=== PATIENT | male | born 1970 | race Caucasian/White ===

== ENCOUNTER 2023-07-15 09:53 | Outpatient (CLI) | payer BC, SELFPAY | END 2023-07-15 09:54 | disposition home or self-care (01) | PROVIDERS: PCP Family Medicine; Visit Provider Family Medicine | DX: R53.83 Other fatigue (principal); R35.0 Frequency of micturition; F41.9 Anxiety disorder, unspecified; Z13.220 Encounter for screening for lipoid disorders | CPT/HCPCS: 80053; 80061; 84439; 84443; 87086 ==

== ENCOUNTER 2023-08-06 10:11 | Outpatient (CLI) | payer BC, SELFPAY ==
--- NOTE | 2023-08-06 11:36 | W.ANESCHARGE ---
Anesthesia Charges Start Date/Time Anesthesia Start Date: 08/06/23 Anesthesia Start Time: 11:08 Stop Date/Time Anesthesia Stop Date: 08/06/23 Anesthesia Stop Time: 11:34
--- NOTE | 2023-08-06 11:38 | W.ANESCHARGE ---
Anesthesia Charges Start Date/Time Anesthesia Start Date: 08/06/23 Anesthesia Start Time: 11:08 Stop Date/Time Anesthesia Stop Date: 08/06/23 Anesthesia Stop Time: 11:34
== END 2023-08-06 10:12 | disposition home or self-care (01) ==
LOC: OP CLINIC 10:11
PROVIDERS: PCP Family Medicine; Visit Provider Internal Medicine
DX: Z12.11 Encounter for screening for malignant neoplasm of colon (principal); K63.5 Polyp of colon; K62.1 Rectal polyp
CPT/HCPCS: 00811; 45380; 45385; 88305; J2704

== ENCOUNTER 2023-08-24 03:00 | Emergency (ER) | payer BC, SELFPAY ==
[2023-08-24] VITALS (10 sets, daily range): BP systolic 132–144; BP diastolic 87–97; PULSE 60–65; RESP 16; TEMP 36.6; O2SAT 94–98; BMI 30.8
--- NOTE | 2023-08-24 03:17 | ED_ITS ---
HPI - General Adult General Chief complaint: Chest Pain Stated complaint: chest pain Time Seen by Provider: 08/24/23 03:02 History of Present Illness HPI narrative: patient awoke from sleep around 30 minutes ago with 10/10 chest pain and SOB, no previous cardiac hx, called 911, EMS gave 3 sublingual nitro, 4mg Zofran and aspirin in route to hospital. patient reports recent stress at work but otherwise denies recent changes in lifestyle, denies cardiac hx. currently SOB has resolved and pain is rated 6 /10. 53-year-old man presenting to the emergency department with concern of chest pain. He arrives by EMS. Had been up maybe more than an hour ago now and noticed some tingling in his left arm as was going to the bathroom. Subsequently began feeling like he was aching all over. Has a difficult time describing what happened. There was some shortness of breath he had some cramping in his feet as well. Was diaphoretic. He has doesn't remember much he says. EMS gave nitro and Zofran and aspirin. He does feel like he would benefit yet from some pain medicine for pain all over. Has not had a fever. Just generally does not feel well. He later says how he was sure he was having a heart attack; was just lying in so much distress on the floor. Later does acknowledge that sees a psychiatrist in weekly session and missed this last session I believe due to therapist being unavailable/ill? Does have a history of PTSD from participation in a few theaters of war. Related Data Home Medications Medication Instructions Recorded Confirmed allopurinol 100 mg tablet 200 mg PO DAILY 07/15/23 07/21/23 aspirin-caffeine 500 mg-32.5 mg 2 tab PO .QD PRN 07/15/23 07/21/23 tablet (Fouzia Back and Body) colchicine 0.6 mg capsule 0.6 mg PO QDAY 07/15/23 07/21/23 Previous Rx's Medication Instructions Recorded peg 3350-electrolytes 236 240 ml PO Q10M #4,000 mL 07/15/23 gram-22.74 gram-6.74 gram-5.86 gram solution (Golytely) escitalopram oxalate 10 mg tablet 10 mg PO QDAY #30 tabs 07/21/23 Allergies Allergy/AdvReac Type Severity Reaction Status Date / Time No Known Drug Allergies Allergy Verified 07/21/23 08:27 Review of Systems Status of ROS: Reports: 6 or more systems reviewed and unremarkable except as noted in History and below PFSH PFS Surgical History Status post rotator cuff repair ?Z98.890 - Other specified postprocedural states (ICD-10) Social History What is your current living situation?: I presently have a place to live Problems where you live: declined to answer In the past 12 months, utilities in danger of being shut off: declined to answer In past 12 months, lack of transportation kept you from medical appts, meetings, work, or getting things needed for daily living: no In the past 12 mos, have been you worried that your food would run out before you had money to buy more?: declined to answer In the past 12 mos, the food you bought just didn't last and you didn't have money to buy more?: declined to answer Smoking Status: Never smoker Non-prescribed substance use: denies use How often does anyone, including family, friends and others, physically hurt you : decline to answer How often does anyone, including family, friends and others, insult or talk down to you: decline to answer How often does anyone, including family, friends and others, threaten you with harm: decline to answer How often does anyone, including family, friends and others, scream or curse at you: decline to answer Little interest or pleasure in doing things: more than half the days Feeling down, depressed, or hopeless: several days Exam Narrative: Exam Narrative: Tremulous. Little distracted. Often speaking rather quietly in difficult to understand. As well-healed surgical scar at the right shoulder. Head looks to be atraumatic. Cranial nerves 2-12 intact. Evidently does not tend to smile a whole lot. Lungs are clear. Does have some large skin tags here. Also at the neck. Heart in regular rate and rhythm without murmur rub or gallop. Moving all extremities without difficulty other than little shaky as noted above. Well-perfused. No lower extremity edema. I am not able to reproduce pain to palpation over the anterior chest but he indicates mid chest very discomfort. Abdomen is soft and nontender. Strong and equal upper extremity pulses. Const: Vital Signs, click to edit/add: Vital Signs - 24 hr 08/24/23 03:04 08/24/23 03:28 08/24/23 03:37 Temperature 98 F Pulse Rate 63 Pulse Rate [Pulse Oximeter] 62 Respiratory Rate 16 16 Blood Pressure 140/93 H Blood Pressure [Ri ght Upper Arm] 142/89 H Pulse Oximetry 97 98 97 Oxygen Delivery Me thod Room Air 08/24/23 04:16 08/24/23 04:36 08/24/23 04:56 Temperature Pulse Rate 65 60 63 Pulse Rate [Pulse Oximeter] Respiratory Rate 16 16 16 Blood Pressure 140/94 H 132/87 140/91 H Blood Pressure [Ri ght Upper Arm] Pulse Oximetry 96 98 96 Oxygen Delivery Me thod 08/24/23 05:37 08/24/23 05:59 08/24/23 06:16 Temperature Pulse Rate 63 61 65 Pulse Rate [Pulse Oximeter] Respiratory Rate 16 16 16 Blood Pressure 138/92 H 137/97 H 144/96 H Blood Pressure [Ri ght Upper Arm] Pulse Oximetry 96 98 96 Oxygen Delivery Me thod 08/24/23 06:36 Temperature Pulse Rate 65 Pulse Rate [Pulse Oximeter] Respiratory Rate 16 Blood Pressure 144/96 H Blood Pressure [Ri ght Upper Arm] Pulse Oximetry 94 Oxygen Delivery Me thod Documenting provider has reviewed patient's vital signs: yes Course Vital Signs Vital signs: Initial Vital Signs Temperature 98 F 08/24/23 03:04 Temperature Source Temporal Artery Scan 08/24/23 03:04 Pulse Rate 62 08/24/23 03:04 Respiratory Rate 16 08/24/23 03:04 Blood Pressure 142/89 H 08/24/23 03:04 Blood Pressure Mean 106 H 08/24/23 03:04 Blood Pressure Position Supine 08/24/23 03:04 Pulse Oximetry 97 08/24/23 03:04 Oxygen Delivery Method Room Air 08/24/23 03:04 Vital Signs Temperature 98 F 08/24/23 03:04 Pulse Rate 62 08/24/23 03:04 Respiratory Rate 16 08/24/23 03:04 Blood Pressure 142/89 H 08/24/23 03:04 Pulse Oximetry 97 08/24/23 03:04 Oxygen Delivery Method Room Air 08/24/23 03:04 Temperature 98 F 08/24/23 03:04 Pulse Rate 65 08/24/23 06:36 Respiratory Rate 16 08/24/23 06:36 Blood Pressure 144/96 H 08/24/23 06:36 Pulse Oximetry 94 08/24/23 06:36 Oxygen Delivery Method Room Air 08/24/23 03:04 Medications Administered Medications: Discontinued Medications Generic Name Dose Route Start Last Admin Trade Name Sandy PRN Reason Stop Dose Admin Sodium Chloride 1,000 mls @ 1,000 mls/hr 08/24/23 03:28 08/24/23 05:11 0.9 % Sodium Chloride 1000 Ml IV 08/24/23 04:27 Infused .Q1H ONE Infusion Ketorolac Tromethamine 15 mg 08/24/23 03:28 08/24/23 03:40 Ketorolac 15 Mg/Ml Inj IVP 08/24/23 03:29 15 mg ONCE ONE Administration Lorazepam 0.5 mg 08/24/23 04:28 08/24/23 04:37 Lorazepam 2 Mg/Ml Inj IVP 08/24/23 04:29 0.5 mg ONCE ONE Administration Lorazepam 1 mg 08/24/23 06:11 08/24/23 06:18 Lorazepam 1 Mg Tablet PO 08/24/23 06:12 1 mg ONCE ONE Administration Medical Decision Making MDM Narrative Medical decision making narrative: I suspect this was a panic attack. Discussed however that difficult to distinguish the sometimes from her noncardiac chest pain and will be evaluating for this. Also for evidence of vascular dissection. Possible tachyarrhythmia. VBGs would suggest that he had been blowing off CO2. He would appreciate some medicine for the nonspecific pain he has all over. Did order for ketorolac. Also receiving L of normal saline. On reassessment is not much changed. Stable vitals. Would like some more treatment. Ultimately does accept my offered lorazepam as prior. Labs are reassuring in addition are EKGs as noted below and repeat troponins. This initial IV Ativan did apparently a offer some temporary relief but symptoms returned. Ordered for 1 mg of oral lorazepam. Was improved and I believe able to sleep prior to departure. Later reveals that had been given prescription of citalopram or escitalopram but has yet started medication. Just did not want to take medication; worried how it might affect his work I believe. See patient discharge plan for further discussion Lab Data Lab results reviewed: Yes I reviewed the patient's lab results Labs: Lab Results 08/24/23 08/24/23 08/24/23 Range/Units 03:20 03:29 03:38 WBC 7.71 (4.50-11.00) K/uL RBC 4.86 (4.30-5.90) m/uL Hgb 14.3 (13.5-17.5) gm/dL Hct 42.4 (37.0-53.0) % MCV 87 (80-100) fL MCH 29 (26-34) pg MCHC 34 (32-36) gm/dL RDW Coeff of Steven 12.6 (11.5-15.5) % Plt Count 241 (140-440) K/uL Neut % (Auto) 53.6 (42.0-72.0) % Lymph % (Auto) 34.8 (20-44) % [place] % (Auto) 6.9 (0.0-11.0) % Eos % (Auto) 3.9 (0.0-7.0) % Baso % (Auto) 0.5 (0.0-3.0) % Neut # (Auto) 4.14 (1.7-7.0) K/uL Lymph # (Auto) 2.68 (0.90-2.90) K/uL [place] # (Auto) 0.50 (0.00-0.90) K/UL Eos # (Auto) 0.30 (0.00-0.50) K/uL Baso # (Auto) 0.04 (0.00-0.30) K/uL Abs Immat Gran (auto) 0.02 (0.00-0.30) K/uL Imm/Tot Granulo (auto) 0.3 % D-Dimer Quant (PE/DVT) 0.28 (0.00-0.50) ug/ml VBG pH 7.460 H (7.32-7.43) VBG pCO2 31 L (40-50) mmHG VBG pO2 106.0 H (25-47) mmHG VBG HCO3 22 (21-28) mmol/L Sodium 137 (135-149) mmol/L Potassium 3.7 (3.6-5.1) mmol/L Chloride 109 (96-114) mmol/L Carbon Dioxide 20 (20-32) mmol/L Anion Gap 8 (7-15) mEq/L BUN 15 (7-30) mg/dL Creatinine 0.9 (0.5-1.5) mg/dL Estimated Creat Clear 112.90 Estimated GFR 103 ml/min Glucose 103 (60-115) mg/dL Lactate 1.3 (0.5-1.9) mmol/L Calcium 9.2 (8.4-10.6) mg/dL Troponin I < 0.01 L (0.01-0.04) ng/mL NT-Pro-B Natriuret Pep 36 pg/mL Urine Opiates Screen (Negative) Ur Oxycodone Screen (Negative) Urine Methadone Screen (Negative) Ur Barbiturates Screen (Negative) U Tricyclic Antidepress (Negative) Ur Phencyclidine Scrn (Negative) Ur Amphetamines Screen (Negative) U Methamphetamines Scrn (Negative) U Benzodiazepines Scrn (Negative) Urine Cocaine Screen (Negative) U Marijuana (THC) Screen (Negative) Ur Drug Screen Comment Ethyl Alcohol < 0.01 L (0.01-0.03) % SARS-CoV-2 (PCR) Negative SARS-CoV-2 (Negative) Influenza Type A (PCR) Negative PCR FLU A (Negative) Influenza Type B (PCR) Negative PCR FLU B (Negative) POC Troponin I 0.00 L (0.01-0.04) ng/ml 08/24/23 08/24/23 Range/Units 04:35 05:05 WBC (4.50-11.00) K/uL RBC (4.30-5.90) m/uL Hgb (13.5-17.5) gm/dL Hct (37.0-53.0) % MCV (80-100) fL MCH (26-34) pg MCHC (32-36) gm/dL RDW Coeff of Steven (11.5-15.5) % Plt Count (140-440) K/uL Neut % (Auto) (42.0-72.0) % Lymph % (Auto) (20-44) % [place] % (Auto) (0.0-11.0) % Eos % (Auto) (0.0-7.0) % Baso % (Auto) (0.0-3.0) % Neut # (Auto) (1.7-7.0) K/uL Lymph # (Auto) (0.90-2.90) K/uL [place] # (Auto) (0.00-0.90) K/UL Eos # (Auto) (0.00-0.50) K/uL Baso # (Auto) (0.00-0.30) K/uL Abs Immat Gran (auto) (0.00-0.30) K/uL Imm/Tot Granulo (auto) % D-Dimer Quant (PE/DVT) (0.00-0.50) ug/ml VBG pH (7.32-7.43) VBG pCO2 (40-50) mmHG VBG pO2 (25-47) mmHG VBG HCO3 (21-28) mmol/L Sodium (135-149) mmol/L Potassium (3.6-5.1) mmol/L Chloride (96-114) mmol/L Carbon Dioxide (20-32) mmol/L Anion Gap (7-15) mEq/L BUN (7-30) mg/dL Creatinine (0.5-1.5) mg/dL Estimated Creat Clear Estimated GFR ml/min Glucose (60-115) mg/dL Lactate (0.5-1.9) mmol/L Calcium (8.4-10.6) mg/dL Troponin I (0.01-0.04) ng/mL NT-Pro-B Natriuret Pep pg/mL Urine Opiates Screen Negative (Negative) Ur Oxycodone Screen Negative (Negative) Urine Methadone Screen Negative (Negative) Ur Barbiturates Screen Negative (Negative) U Tricyclic Antidepress Negative (Negative) Ur Phencyclidine Scrn Negative (Negative) Ur Amphetamines Screen Negative (Negative) U Methamphetamines Scrn Negative (Negative) U Benzodiazepines Scrn Negative (Negative) Urine Cocaine Screen Negative (Negative) U Marijuana (THC) Screen Negative (Negative) Ur Drug Screen Comment See Note Ethyl Alcohol (0.01-0.03) % SARS-CoV-2 (PCR) (Negative) Influenza Type A (PCR) (Negative) Influenza Type B (PCR) (Negative) POC Troponin I 0.01 (0.01-0.04) ng/ml ECG Data Attestation: I personally reviewed and interpreted this ECG as follows: (EKG 1. With a sinus bradycardia at a rate of 58 without acute ischemic changes. EKG 2. In normal sinus rhythm at a rate of 64 without acute ischemic changes) Discharge Plan Discharge Clinical Impression: Malaise, Atypical chest pain, Panic attack Patient Disposition: Home w/ Parent or Adult Condition: Improved Additional Instructions: I do think you likely had a panic attack. Thankfully have not seen any evidence of heart problem here today. You might want to start your medication as prescribed by your primary care physician. If you do begin this, would check in with your primary care provider about 2 weeks after starting medication. The medication that I was considering giving you for other flares of anxiety is called hydroxyzine also known as Vistaril. You received lorazepam and normal saline fluids here today. Looks like you probably are already doing this, but do try to get in some heart pumping exercise daily. Plan something fun, something to look forward to weekly. You might want a message your therapist/psychiatrist regarding today's visit in the emergency department. Prescriptions: No Action Fouzia Back and Body 500-32.5 mg tablet 2 tab PO .QD PRN colchicine 0.6 mg capsule 0.6 mg PO QDAY allopurinol 100 mg tablet 200 mg PO DAILY peg 3350-electrolytes [Golytely] 236-22.74-6.74 -5.86 gram recon soln 240 ml PO Q10M Qty: 4000 0RF Rx Instructions: until fecal effluent is clear escitalopram oxalate 10 mg tablet 10 mg PO QDAY Qty: 30 1RF Follow Up/Referrals: Osito Correa MD [Primary Care Provider] - Stand Alone Forms: [employer] Info Instructions
--- NOTE | 2023-08-24 03:28 | XR_ITS ---
Patient: OLGA CHAPARRO Facility:?[facility] Patient ID:?[id number] Site Patient ID:?[id number]. Site :?[id number] Study:?XRay-Chest PORTABLE-08/24/2023 3:45:37 AM Ordering Physician:BEN Final Report: INDICATION: Mid chest pain TECHNIQUE: Chest radiograph 1 view COMPARISON: None FINDINGS: The sensitivity and specificity of the exam are moderately limited by the patient`s body habitus. Mediastinum: The mediastinum is normal in appearance. The heart silhouette is normal in size and morphology. Lung: Both lungs are unremarkable in appearance with small lung volumes. No sign of pleural effusion seen. No pneumothorax is identified. Bone and Soft tissue: Unremarkable for age. IMPRESSION: 1. No acute cardiopulmonary disease is seen. Dictated by: Koko Rodriguez MD @ 08/24/2023 03:48:06 Signed by:?Koko Rodriguez MD @08/24/2023 3:48:06 AM (Electronic Signature)
[2023-08-24 03:39] LABS: HCO3 VBG 22 mmol/L (21-28); Lactate* 1.3 mmol/L (0.5-1.9); PCO2 VBG 31 mmHG (40-50)
[2023-08-24 03:40] LABS: Basophils Absolute Auto 0.04 K/uL (0.00-0.30); Basophils Percent Auto 0.5 % (0.0-3.0); Eosinophils Percent Auto 3.9 % (0.0-7.0); Hematocrit 42.4 % (37.0-53.0); Hemoglobin* 14.3 gm/dL (13.5-17.5); Immature Granulocytes Abs Auto 0.02 K/uL (0.00-0.30); Immature Granulocytes Pct Auto 0.3 %; Lymphocytes Absolute Auto 2.68 K/uL (0.90-2.90); Lymphocytes Percent Auto 34.8 % (20-44); Mean Corpuscular HGB Conc 34 gm/dL (32-36); Mean Corpuscular Hemoglobin 29 pg (26-34); Mean Corpuscular Volume 87 fL (80-100); Monocytes Percent Auto 6.9 % (0.0-11.0); Neutrophils Absolute Auto 4.14 K/uL (1.7-7.0); Neutrophils Percent Auto 53.6 % (42.0-72.0); Platelet Count* 241 K/uL (140-440); RDW Coefficient of Variation % 12.6 % (11.5-15.5); Red Blood Count 4.86 m/uL (4.30-5.90); White Blood Count* 7.71 K/uL (4.50-11.00)
[2023-08-24] MEDS: 0.9 % SODIUM CHLORIDE 1000 ml 1,000 ML IV (03:40)
[2023-08-24] MEDS: KETOROLAC 15 MG/ML inj IVP (03:40)
[2023-08-24 03:43] LABS: Slide Review Reflex No
[2023-08-24 03:45] LABS: Chloride* 109 mmol/L (96-114); Potassium* 3.7 mmol/L (3.6-5.1); Sodium* 137 mmol/L (135-149)
[2023-08-24 03:48] LABS: Anion Gap 8 mEq/L (7-15); Blood Urea Nitrogen* 15 mg/dL (7-30); Carbon Dioxide* 20 mmol/L (20-32); Creatinine* 0.9 mg/dL (0.5-1.5); Estimated Glomerular Filt Rate 103 ml/min; Glucose* 103 mg/dL (60-115)
[2023-08-24 03:49] LABS: Calcium* 9.2 mg/dL (8.4-10.6)
[2023-08-24 03:50] LABS: D Dimer Quantitative* 0.28 ug/ml (0.00-0.50); Ethanol* < 0.01 % (0.01-0.03)
[2023-08-24 04:01] LABS: NT Pro B Type NatriureticPept* 36 pg/mL; Troponin I* < 0.01 ng/mL (0.01-0.04)
[2023-08-24 04:20] LABS: PCR FLU A Negative PCR FLU A (Negative); PCR FLU B Negative PCR FLU B (Negative); SARS PCR* Negative SARS-CoV-2 (Negative)
[2023-08-24] MEDS: LORazepam 2 MG/ML inj 0.5 MG IVP (04:37)
[2023-08-24 04:49] LABS: Amphetamine Screen Urine Negative (Negative); Barbiturate Screen Urine Negative (Negative); Benzodiazepines Screen Urine Negative (Negative); Cannabinoid Screen Urine Negative (Negative); Cocaine Screen Urine Negative (Negative); Methadone Screen Urine Negative (Negative); Methamphetamines Screen Urine Negative (Negative); Opiate Screen Urine Negative (Negative); Oxycodone Screen Urine Negative (Negative); Phencyclidine Screen Urine Negative (Negative); Tricyclic Antidepressant Urine Negative (Negative)
[2023-08-24 05:22] LABS: Troponin, Point-of-Care* 0.01 ng/ml (0.01-0.04)
[2023-08-24] MEDS: LORazepam 1 MG TABLET PO (06:18)
== END 2023-08-24 07:21 | disposition home or self-care (01) ==
PROVIDERS: Emergency Provider Family Medicine; PCP Family Medicine
DX: R07.9 Chest pain, unspecified (principal); F41.0 Panic disorder [episodic paroxysmal anxiety]
CPT/HCPCS: 36415; 71045; 80048; 80306; 82077; 82803; 83605; 83880; 84484; 85025; 85379; 87631; 93005; 94761; 96374; 96375; 99284; 99285; A9270; J1885; J2060; J7030